=== PATIENT | male | born 1960 | race Caucasian/White ===

== ENCOUNTER 2021-07-24 10:27 | Emergency (ER) | payer BC ==
[2021-07-24] MEDS ORDERED: Sodium Chloride 0.9% 10 ML Syringe FLUSH PRN (10:34)
[2021-07-24] MEDS: Aspirin 81 MG Tab.Chew PO ONE (10:42)
[2021-07-24] MEDS: Nitroglycerin 0.4 MG Tab.SL SL ONE (10:42)
[2021-07-24 11:15] LABS: PTT,PARTIAL THROMBOPLSTIN TIME 23.9 SEC (20.5-30.9)
[2021-07-24 11:38] LABS: CHLORIDE,CL 105 mmol/L (98-107); SODIUM,NA 141 mmol/L (136-145)
[2021-07-24 11:40] LABS: ANION GAP 11.8 mmol/L (5-15)
[2021-07-24 12:01] VITALS: BP 106/48; PULSE 63
== END 2021-07-24 11:59 | disposition home or self-care (01) ==
LOC: VM.ED 10:27
DX: R07.89 Other chest pain (principal); I25.10 Atherosclerotic heart disease of native coronary artery without angina pectoris; E78.00 Pure hypercholesterolemia, unspecified; I10 Essential (primary) hypertension; M19.90 Unspecified osteoarthritis, unspecified site; Z79.82 Long term (current) use of aspirin; Z79.899 Other long term (current) drug therapy
CPT/HCPCS: 36415; 71045; 80053; 83735; 83880; 84100; 84443; 84484; 85025; 85610; 85730; 93005; 99284; 99285-25; A9270-GY

== ENCOUNTER 2021-07-27 10:11 | Day surgery (SDC) | payer BC ==
[~2021-07-27 10:11] MED LIST: Lactated Ringers 1,000 ML IV SCH; Sodium Chloride 0.9% 10 ML Syringe FLUSH PRN
[2021-07-27] MEDS ORDERED: Propofol 200 MG/20 ML SDV ONE ×2 (11:01→12:24)
[2021-07-27] MEDS ORDERED: fentaNYL 100 MCG/2 ML SDV ONE (11:02)
[2021-07-27 12:55] VITALS: PULSE 59
[2021-07-27 13:16] VITALS: BP 119/65
== END 2021-07-27 13:35 | disposition home or self-care (01) ==
LOC: VM.SDS 10:11
PROVIDERS: ATTEND Family Medicine
DX: Z12.11 Encounter for screening for malignant neoplasm of colon (principal); I25.10 Atherosclerotic heart disease of native coronary artery without angina pectoris; I10 Essential (primary) hypertension; G47.33 Obstructive sleep apnea (adult) (pediatric); Z98.890 Other specified postprocedural states; Z79.899 Other long term (current) drug therapy; Z88.8 Allergy status to other drugs, medicaments and biological substances; Z87.891 Personal history of nicotine dependence
CPT/HCPCS: 00812; J2704; J3010; J7120